=== PATIENT | female | born 1985 | race Two or more races ===

== ENCOUNTER 2018-07-03 13:09 | Observation (INO) | payer BC, OTHER ==
[~2018-07-03] VITALS: Ht 165.1 cm; Wt 137.9 kg
[2018-07-03 15:28] LABS: HEMATOCRIT 37.1 % (36-48); NEUTROPHILS # (AUTO) 5.6 K/uL (1.8-7.7)
[2018-07-03 15:29] LABS: BASOPHILS % (AUTO) 0.1 % (0.0-2.0); EOSINOPHILS % (AUTO) 0.4 % (0.0-4.0); HEMOGLOBIN 11.9 g/dL (12.0-16.0); LYMPHOCYTES # (AUTO) 3.3 K/uL (1.0-5.5); LYMPHOCYTES % (AUTO) 34.6 % (20.5-51.5); MEAN CORPUSCULAR HEMOGLOBIN 29 pg (27-31); MEAN CORPUSCULAR HGB CONC 32 % (32-36); MEAN CORPUSCULAR VOLUME 90 fL (79.0-98.0); MONOCYTES # (AUTO) 0.5 K/uL (0.0-1.0); MONOCYTES % (AUTO) 5.1 % (1.7-9.3); NEUTROPHILS % (AUTO) 59.8 % (40.0-70.0); RED BLOOD CELL COUNT(AUTO) 4.13 MIL/uL (4.2-6.2); RED CELL DISTRIBUTION WIDTH 17.9 % (9.0-15.0); WHITE BLOOD COUNT (AUTO) 9.4 K/uL (4.8-10.8)
[2018-07-03 15:36] LABS: CALCIUM 9.2 mg/dL (8.4-11.0); CREATININE 0.69 mg/dL (0.55-1.30); POTASSIUM 4.3 mmol/L (3.5-5.1)
[2018-07-03 15:40] LABS: INR 0.9 (0.8-1.2)
[2018-07-03 15:41] LABS: ALBUMIN 2.1 g/dL (3.4-4.8); TOTAL BILIRUBIN 0.2 mg/dL (0.0-1.0); URIC ACID 6.5 mg/dL (2.4-7.0)
[2018-07-03 15:46] LABS: PLATELET COUNT (AUTO) 400 K/uL (130-430)
[2018-07-03 16:02] LABS: BILIRUBIN,URINE NEGATIVE (NEGATIVE); BLOOD, URINE NEGATIVE (NEGATIVE); CLARITY/URINE CLEAR (CLEAR); COLOR,URINE YELLOW (YELLOW); GLUCOSE,URINE NEGATIVE (NEGATIVE); KETONES,URINE NEGATIVE (NEGATIVE); LEUKOCYTE ESTERASE ,URINE TRACE (NEGATIVE); NITRITE, URINE NEGATIVE (NEGATIVE); PROTEIN URINE 1+ (NEGATIVE); UROBILINOGEN,URINE 0.2 (0.2-1.0)
[2018-07-03 16:10] LABS: BACTERIA,URINE MODERATE /HPF (None Seen); RBC,URINE 0-3 /HPF (0-3)
== END 2018-07-03 16:15 | disposition home or self-care (01) ==
LOC: SPU 13:09
PROVIDERS: ADMIT Specialist; ATTEND Specialist
DX: O26.893 Other specified pregnancy related conditions, third trimester (principal); R51 Headache; Z3A.34 34 weeks gestation of pregnancy
CPT/HCPCS: 36415; 80053; 81000; 81002; 84550; 85025; 85384; 85610; 85730; 87086; G0378

== ENCOUNTER 2018-07-04 15:45 | Inpatient (IN) | payer OTHER ==
[~2018-07-04] VITALS: Ht 165.1 cm; Wt 139.7 kg
[2018-07-04] MEDS ORDERED: LR 1,000 ML IV SCH (17:27)
[2018-07-04 18:05] VITALS: BP_SYST 136
[2018-07-04 18:13] LABS: CALCIUM 9.3 mg/dL (8.4-11.0); CREATININE 0.72 mg/dL (0.55-1.30); POTASSIUM 4.2 mmol/L (3.5-5.1)
[2018-07-04 18:18] LABS: ALBUMIN 2.1 g/dL (3.4-4.8); HEMOGLOBIN 11.7 g/dL (12.0-16.0); RED BLOOD CELL COUNT(AUTO) 4.09 MIL/uL (4.2-6.2); TOTAL BILIRUBIN 0.1 mg/dL (0.0-1.0); URIC ACID 5.6 mg/dL (2.4-7.0); WHITE BLOOD COUNT (AUTO) 10.1 K/uL (4.8-10.8)
[2018-07-04 18:19] LABS: LYMPHOCYTES % (AUTO) 33.1 % (20.5-51.5); MEAN CORPUSCULAR HEMOGLOBIN 29 pg (27-31); MEAN CORPUSCULAR HGB CONC 32 % (32-36); MEAN CORPUSCULAR VOLUME 91 fL (79.0-98.0); NEUTROPHILS % (AUTO) 61.2 % (40.0-70.0); PLATELET COUNT (AUTO) 242 K/uL (130-430); RED CELL DISTRIBUTION WIDTH 17.5 % (9.0-15.0)
[2018-07-04 18:20] LABS: BASOPHILS % (AUTO) 0.2 % (0.0-2.0); EOSINOPHILS % (AUTO) 0.4 % (0.0-4.0); LYMPHOCYTES # (AUTO) 3.4 K/uL (1.0-5.5); MONOCYTES # (AUTO) 0.5 K/uL (0.0-1.0); MONOCYTES % (AUTO) 5.1 % (1.7-9.3); NEUTROPHILS # (AUTO) 6.2 K/uL (1.8-7.7)
[2018-07-04 18:37] LABS: BILIRUBIN,URINE NEGATIVE (NEGATIVE); CLARITY/URINE CLEAR (CLEAR); COLOR,URINE YELLOW (YELLOW); GLUCOSE,URINE NEGATIVE (NEGATIVE); KETONES,URINE NEGATIVE (NEGATIVE); LEUKOCYTE ESTERASE ,URINE NEGATIVE (NEGATIVE); NITRITE, URINE NEGATIVE (NEGATIVE); PH,URINE 6.5 (5.0-8.0); PROTEIN URINE 1+ (NEGATIVE); UROBILINOGEN,URINE 0.2 (0.2-1.0)
[2018-07-04 18:38] LABS: INR 0.9 (0.8-1.2); PROTHROMBIN TIME 8.9 SECS (9.5-12.5)
[2018-07-04 18:41] LABS: BLOOD, URINE TRACE (NEGATIVE)
[2018-07-04 18:49] LABS: WBC,URINE 0-3 /HPF (0-3)
[2018-07-04 18:50] LABS: BACTERIA,URINE RARE /HPF (None Seen); MUCUS,URINE None Seen /LPF (None Seen); YEAST,URINE None Seen /HPF (None Seen)
[2018-07-04] MEDS ORDERED: CEFAZOLIN 2 GM IVPB PREMIX 50 ML IV ONE (19:11)
[2018-07-05] MEDS ORDERED: KETOROLAC TROMETHAMINE 60 MG/2 ML VIAL IM PRN (14:30)
[2018-07-05] MEDS ORDERED: NALOXONE HCL 0.4 MG/ML AMP (NARCAN) IVP PRN ×2 (14:30)
[2018-07-05] MEDS ORDERED: KETOROLAC TROMETHAMINE 30 MG VIAL IVP PRN (14:30)
[2018-07-05] MEDS ORDERED: DIPHENHYDRAMINE INJ 50 MG/ML VIAL IVP PRN (14:30)
[2018-07-05] MEDS ORDERED: fentaNYL CITRATE/PF 100 MCG/2 ML AMP IVP PRN ×2 (14:30)
[2018-07-05] MEDS ORDERED: NALBUPHINE HCL 10 MG/ML AMP IVP PRN (14:30)
[2018-07-05] MEDS ORDERED: ONDANSETRON HCL 4 MG/2 ML VIAL IVP PRN (14:30)
[2018-07-05] MEDS ORDERED: MORPHINE SULFATE 10MG/10ML PF AMP SP SCH (14:30)
[2018-07-05] MEDS ORDERED: OXYTOCIN/0.9 % SODIUM CHLORIDE 1,000 ML IV ONE (16:27)
[2018-07-05 16:30] VITALS: BP_SYST 120
[2018-07-05] MEDS ORDERED: BISACODYL 10 MG/SUPPOSITORY RC PRN (16:30)
[2018-07-05] MEDS ORDERED: ANUSOL 1 EA SUPP.RECT (PREPARATION H) RC PRN (16:30)
[2018-07-05] MEDS ORDERED: LR 1,000 ML IV.SOLN IV ONE (16:30)
[2018-07-05] MEDS ORDERED: MORPHINE SULFATE 10MG/10ML PF AMP ONE (16:30)
[2018-07-05] MEDS ORDERED: RHO(D) IMMUNE GLOBULIN/MALTOSE 1500 UNITS/1.3 ML (WINHRO) IM PRN (16:30)
[2018-07-05] MEDS ORDERED: BUPIVACAINE /PF 0.75% 10 ML VIAL INJ ONE (16:30)
[2018-07-05] MEDS ORDERED: DIPH-TET-PERTUS Vaccine 0.5 ML VIAL (ADACEL) I.M. PRN (16:30)
[2018-07-05] MEDS ORDERED: NS IRRIG SOLN 1000 ML IR ONE (16:30)
[2018-07-05] MEDS ORDERED: OXYCODONE/ACETAMINOPHEN 5-325 TABLET PO PRN (16:30)
[2018-07-05] MEDS ORDERED: LANOLIN 7 GM OINT. TP PRN (16:30)
[2018-07-05] MEDS ORDERED: MEASLES,MUMPS&RUBELLA VACC/PF 12500 UNIT/0.5 ML VIAL SUBQ PRN (16:30)
[2018-07-05] MEDS ORDERED: HYDROcodone/ACETAMIN 5-325 MG TAB (NORCO/ VICODIN) PO PRN (16:30)
[2018-07-05] MEDS ORDERED: VASOPRESSIN 20 UNITS/ML VIAL IV ONE (16:30)
[2018-07-05] MEDS: ONDANSETRON HCL 4 MG/2 ML VIAL IVP PRN ×2 (17:40→21:25)
[2018-07-05] MEDS ORDERED: TEMAZEPAM 15 MG CAPSULE PO PRN (21:00)
[2018-07-05] MEDS: MEPERIDINE HCL/PF 25 MG/ML DISP.SYRIN IVP PRN (21:25)
[2018-07-05] MEDS ORDERED: DIPHENHYDRAMINE INJ 50 MG/ML VIAL ONE (21:58)
[2018-07-06] MEDS: LR 1,000 ML IV SCH ×2 (03:15→11:40)
[2018-07-06] MEDS: MEPERIDINE HCL/PF 25 MG/ML DISP.SYRIN IVP PRN (05:15)
[2018-07-06] MEDS: CEFAZOLIN 1 GM IVPB PREMIX 50 ML IV SCH ×3 (06:00→12:00)
[2018-07-06 06:40] LABS: EOSINOPHILS % (AUTO) 0.1 % (0.0-4.0); HEMATOCRIT 24.9 % (36-48); LYMPHOCYTES # (AUTO) 4.3 K/uL (1.0-5.5); LYMPHOCYTES % (AUTO) 29.5 % (20.5-51.5); MEAN CORPUSCULAR HEMOGLOBIN 28 pg (27-31); MEAN CORPUSCULAR HGB CONC 32 % (32-36); MEAN CORPUSCULAR VOLUME 89 fL (79.0-98.0); MONOCYTES # (AUTO) 0.7 K/uL (0.0-1.0); MONOCYTES % (AUTO) 4.7 % (1.7-9.3); NEUTROPHILS # (AUTO) 9.7 K/uL (1.8-7.7); NEUTROPHILS % (AUTO) 65.7 % (40.0-70.0); PLATELET COUNT (AUTO) 212 K/uL (130-430); RED BLOOD CELL COUNT(AUTO) 2.78 MIL/uL (4.2-6.2); RED CELL DISTRIBUTION WIDTH 17.9 % (9.0-15.0); WHITE BLOOD COUNT (AUTO) 14.7 K/uL (4.8-10.8)
[2018-07-06 07:40] LABS: HEMOGLOBIN 7.8 g/dL (12.0-16.0)
--- NOTE | 2018-07-06 14:33 | NUR ---
Dietitian Recommendations * Recommend continuing regular diet per LP, RD Please refer to Nutrition Assessment for details.
[2018-07-06] MEDS: SIMETHICONE 80 MG TAB.CHEW PO PRN (15:20)
[2018-07-06] MEDS: DOCUSATE SODIUM 100 MG CAPSULE PO PRN (15:20)
[2018-07-06] MEDS: OXYCODONE/ACETAMINOPHEN 5-325 TABLET PO PRN ×2 (15:20→23:00)
[2018-07-06] MEDS: IBUPROFEN 600 MG TABLET PO SCH (17:58)
[2018-07-07] MEDS: IBUPROFEN 600 MG TABLET PO SCH ×4 (00:18→18:04)
[2018-07-07] MEDS: DOCUSATE SODIUM 100 MG CAPSULE PO PRN ×3 (00:18→22:26)
[2018-07-07] MEDS: OXYCODONE/ACETAMINOPHEN 5-325 TABLET PO PRN ×5 (03:26→22:27)
[2018-07-07] MEDS ORDERED: IBUPROFEN 600 MG TABLET PO SCH (06:00)
[2018-07-07] MEDS: SIMETHICONE 80 MG TAB.CHEW PO PRN ×3 (08:53→18:05)
[2018-07-07] MEDS: metFORMIN HCL 500 MG TABLET PO SCH (18:05)
[2018-07-07] MEDS: FAMOTIDINE 20 MG TABLET PO SCH (22:11)
[2018-07-08] MEDS: IBUPROFEN 600 MG TABLET PO SCH ×4 (00:04→17:38)
[2018-07-08] MEDS: OXYCODONE/ACETAMINOPHEN 5-325 TABLET PO PRN ×4 (03:26→21:01)
[2018-07-08] MEDS: metFORMIN HCL 500 MG TABLET PO SCH ×2 (09:30→20:55)
[2018-07-08] MEDS: FAMOTIDINE 20 MG TABLET PO SCH (09:31)
[2018-07-08] MEDS: DOCUSATE SODIUM 100 MG CAPSULE PO PRN (09:31)
[2018-07-08] MEDS: SENNOSIDES/DOCUSATE SODIUM 1 TAB TABLET(SENOKOT-S) PO PRN (09:31)
[2018-07-09] MEDS: IBUPROFEN 600 MG TABLET PO SCH ×5 (00:22→23:38)
[2018-07-09] MEDS: OXYCODONE/ACETAMINOPHEN 5-325 TABLET PO PRN ×5 (03:37→23:38)
[2018-07-09] MEDS: FAMOTIDINE 20 MG TABLET PO SCH (09:06)
[2018-07-09] MEDS: DOCUSATE SODIUM 100 MG CAPSULE PO PRN ×2 (09:07→20:59)
[2018-07-09] MEDS: SENNOSIDES/DOCUSATE SODIUM 1 TAB TABLET(SENOKOT-S) PO PRN ×2 (09:07→21:00)
[2018-07-09] MEDS: metFORMIN HCL 500 MG TABLET PO SCH ×2 (09:07→20:50)
[2018-07-09 10:46] LABS: BASOPHILS % (AUTO) 0.1 % (0.0-2.0); EOSINOPHILS # (AUTO) 0.1 K/uL (0.0-0.4); EOSINOPHILS % (AUTO) 1.2 % (0.0-4.0); HEMATOCRIT 22.6 % (36-48); HEMOGLOBIN 7.1 g/dL (12.0-16.0); LYMPHOCYTES # (AUTO) 2.4 K/uL (1.0-5.5); LYMPHOCYTES % (AUTO) 25.5 % (20.5-51.5); MEAN CORPUSCULAR HEMOGLOBIN 29 pg (27-31); MEAN CORPUSCULAR HGB CONC 31 % (32-36); MEAN CORPUSCULAR VOLUME 91 fL (79.0-98.0); MONOCYTES # (AUTO) 0.5 K/uL (0.0-1.0); NEUTROPHILS # (AUTO) 6.5 K/uL (1.8-7.7); NEUTROPHILS % (AUTO) 68.2 % (40.0-70.0); PLATELET COUNT (AUTO) 258 K/uL (130-430); RED BLOOD CELL COUNT(AUTO) 2.48 MIL/uL (4.2-6.2); RED CELL DISTRIBUTION WIDTH 18.4 % (9.0-15.0); WHITE BLOOD COUNT (AUTO) 9.5 K/uL (4.8-10.8)
[2018-07-09] MEDS ORDERED: FERROUS SULFATE 325 MG TABLET.DR PO ONE (12:00)
[2018-07-09] MEDS ORDERED: FERROUS SULFATE 325 MG TABLET.DR PO SCH (17:00)
[2018-07-09] MEDS: SIMETHICONE 80 MG TAB.CHEW PO PRN ×2 (17:24→21:00)
== END 2018-07-09 23:49 | disposition home or self-care (01) | DRG 787 ==
LOC: SPU 16:44
PROVIDERS: ADMIT Specialist; ATTEND Specialist
PROC: 10D00Z1 Extraction of Products of Conception, Low, Open Approach (ICD-10-PCS; principal; 2018-07-05 16:00)
DX: O60.14X2 Preterm labor third trimester with preterm delivery third trimester, fetus 2 (principal); Z68.43 Body mass index [BMI] 50.0-59.9, adult; O30.003 Twin pregnancy, unspecified number of placenta and unspecified number of amniotic sacs, third trimester; O60.14X1 Preterm labor third trimester with preterm delivery third trimester, fetus 1; O13.4 Gestational [pregnancy-induced] hypertension without significant proteinuria, complicating childbirth; O24.429 Gestational diabetes mellitus in childbirth, unspecified control; O99.02 Anemia complicating childbirth; D64.9 Anemia, unspecified; O01.9 Hydatidiform mole, unspecified; E66.01 Morbid (severe) obesity due to excess calories; O99.214 Obesity complicating childbirth; O32.8XX1 Maternal care for other malpresentation of fetus, fetus 1; Z37.2 Twins, both liveborn; Z3A.34 34 weeks gestation of pregnancy
CPT/HCPCS: 36415; 80053; 81000-TC; 84550-TC; 85025; 85384-TC; 85610-TC; 85730-TC; 86592; 86886; 86900; 86901; 88307; 94760; J0690; J1200; J1885; J2175; J2274; J2405; J2590; J3490; J7120